=== PATIENT | female | born 1980 | race American Indian/Alaskan Native ===

== ENCOUNTER 2021-01-02 14:51 | Emergency (ER) | payer SELFPAY ==
[2021-01-02 16:15] VITALS: BP 131/77
--- NOTE | 2021-01-02 19:24 | Ultrasound Report ---
ULTRASOUND PELVIS INDICATION / CLINICAL INFORMATION: IUD pelvic pain. TECHNIQUE: Transabdominal. Duplex Color Doppler used: Yes. COMPARISON: None available FINDINGS: UTERUS: Uterus is normal in size and morphology with intrauterine device noted within the endometrial cavity. RIGHT ADNEXA: No significant ovarian cyst or mass. Normal color Doppler blood flow. LEFT ADNEXA: No significant ovarian cyst or mass. Normal color Doppler blood flow. URINARY BLADDER: No significant abnormality. FREE FLUID: None. ADDITIONAL FINDINGS: None. IMPRESSION: 1. No significant abnormality. Line 2. IUD in appropriate position within the endometrial cavity. Signer Name: Guilherme Kincaid MD Signed: 01/02/2021 7:20 PM Workstation Name: [id number]
--- NOTE | 2021-01-02 19:50 | Event Note ---
ED Screening Note Date of service: 01/02/21 Time: 19:48 ED Screening Note: 40-year-old female patient presents to the emergency department with complaints of pelvic pain starting today. Patient describes the pain as "sharp, shooting" pain "up her vaginal area." Patient states she has been experiencing abdominal cramps and vaginal bleeding since her Mirena IUD was placed on December 14. She has been bleeding through approximately three pads/tampons per day every day since the IUD insertion. States she cannot walk because of the pain. General: Awake, appropriately interactive, no acute distress. Neck: Supple. Full range of motion intact. Cardiovascular: Normal peripheral perfusion. Pulmonary: No respiratory distress. Patient is speaking normally without use of accessory muscles. Skin: No apparent rashes or lesions. Neurological: No facial asymmetry. Speech is clear. Follows commands. Patient is alert and oriented. Musculoskeletal: Moves all four extremities spontaneously with normal range of motion. Psych: Cooperative. Appropriate mood and affect. I have greeted and performed a focused rapid initial assessment of this patient. A comprehensive ED assessment and evaluation of the patient, analysis of all test results, and completion of the medical decision-making process will be conducted by additional ED providers. This initial assessment/diagnostic orders/clinical plan/treatment(s) is/are subject to change based on patients health status, clinical progression and re-assessment. Further treatment and workup at subsequent clinical provider's discretion. Patient/guardian urged not to elope from the ED as their condition may be serious if not clinically assessed and managed.
== END 2021-01-04 20:15 | disposition home or self-care (01) ==
LOC: ED 14:51
DX: R10.2 Pelvic and perineal pain (principal); Z53.21 Procedure and treatment not carried out due to patient leaving prior to being seen by health care provider
CPT/HCPCS: 76856